=== PATIENT | female | born 2000 | race Caucasian/White ===

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

== ENCOUNTER 2018-01-28 17:11 | Emergency (ER) | payer BC ==
[~2018-01-28] VITALS: Ht 165.1 cm; Wt 53.2 kg
[2018-01-28 17:16] VITALS: TEMP 36.8; Ht 165.1 cm; Wt 53.2 kg
[2018-01-28] MEDS ORDERED: BCPILLS PO (18:02)
[2018-01-28] MEDS ORDERED: BIOT1CAP4 PO (18:02)
[2018-01-28] MEDS ORDERED: MULT-240 PO (18:02)
--- NOTE | 2018-01-28 18:23 | DIAGNOSTIC IMAGING REPORT ---
HEAD WITHOUT CONTRAST (CT) CLINICAL HISTORY: 17 years-old Female with head injury. Acute head injury with headache and dizziness TECHNIQUE: Multiple axial CT images of the head were obtained without contrast. A dose lowering technique was utilized adhering to the principles of ALARA. CT DOSE: 537.48 mGy.cm COMPARISON: None. FINDINGS: No acute intracranial hemorrhage, midline shift, intracranial mass, hydrocephalus, territorial ischemia or abnormal extra-axial collection. The calvarium is intact. Mastoid air cells are clear. Moderate mucosal thickening of the ethmoid air cells. Left kellee bullosa. Soft tissues and orbits are unremarkable. IMPRESSION: No acute intracranial abnormality. The above report was generated using voice recognition software. It may contain grammatical, syntax or spelling errors. Electronically signed by: Josué Hitchcock M.D. 01/28/2018 6:22 PM Dictated Date/Time: 01/28/2018 6:20 PM
[2018-01-28] MEDS ORDERED: ONDANSETRON HOME PACK 4MG OD TAB PO ONE (18:45)
[2018-01-28 19:08] VITALS: BP 132/87; PULSE 88; O2SAT 97
--- NOTE | 2018-01-28 20:42 | EMERGENCY ROOM VISIT NOTE ---
ED Visit Note First contact with patient: 17:45 CHIEF COMPLAINT: Head injury HISTORY OF PRESENT ILLNESS: This 17-year-old female patient presented to the emergency department after receiving a head injury 3 or 4 days ago. The patient states that she fell and struck her head off a shelf. There was no brief loss of consciousness. There has been nausea and vomiting, which has improved the past 1 day. The patient complains of persistent headache. The patient denies neck or extremity injury. The headache has been persistent. The patient has taken nothing for the pain. The patient rates the pain as 7/10 and dull. The patient denies bowel or bladder dysfunction. The patient denies any other injuries. REVIEW OF SYSTEMS: A review of systems was performed with positives and pertinent negatives listed in the history of present illness. All other systems were reviewed and are negative. ALLERGIES: Penicillins MEDICATIONS: No chronic medication PMH: Otherwise healthy SOCIAL HISTORY: Student who lives locally PHYSICAL EXAM: Vital Signs: Reviewed Nurse's notes, vital signs stable. GENERAL : White female, in no acute distress, well-developed, well-nourished. NEURO: The patient is alert, oriented to person place and time, and coherent. Normal mini mental status exam. Negative Romberg and pronator drift. Cerebellar function intact. HEAD: Normocephalic atraumatic EYES: Pupils are equal round and reactive to light and accommodation. EOMs are full and optic discs and fundi are normal. There is no swelling or discoloration of the tissue surrounding the eyes. EARS: External auditory canals clear without blood. NOSE : Patent without tenderness. No septal hematoma. FACE: No facial bone tenderness. NECK: Supple. There is no cervical spine tenderness. The patient does not have tenderness with movement of the neck. HEAD WITHOUT CONTRAST (CT) CLINICAL HISTORY: 17 years-old Female with head injury. Acute head injury with headache and dizziness TECHNIQUE: Multiple axial CT images of the head were obtained without contrast. A dose lowering technique was utilized adhering to the principles of ALARA. CT DOSE: 537.48 mGy.cm COMPARISON: None. FINDINGS: No acute intracranial hemorrhage, midline shift, intracranial mass, hydrocephalus, territorial ischemia or abnormal extra-axial collection. The calvarium is intact. Mastoid air cells are clear. Moderate mucosal thickening of the ethmoid air cells. Left kellee bullosa. Soft tissues and orbits are unremarkable. IMPRESSION: No acute intracranial abnormality. ED COURSE: Physical exam and history were performed. Nursing notes and EMR were reviewed. The patient appears to have suffered a head injury a few days ago. Evidently this occurred while she was in [place] on spring. On examination she appears well. I discussed options of care and we elected for CT scan. CT scan is as above I does not show any acute intracranial abnormality. Overall the patient appears well for discharge home. Clinically I suspect that she has a concussion. I will give her a home pack of Zofran to help with her nausea. She is otherwise use [id number] analgesics. She is to follow with [facility] and was otherwise invited back to the ER with any new, worsening, or concerning symptoms. Current/Historical Medications Scheduled Biotin (Biotin), 2 CAP PO DAILY Control Pills ( Control Pills), 1 TAB PO DAILY Multiple Vitamins W/ Minerals (Womens One Daily), 1 TAB PO DAILY Allergies Coded Allergies: Amoxicillin (Verified Allergy, Intermediate, Rash, 01/28/18) Penicillins (Verified Allergy, Mild, Rash, 01/28/18) Vital Signs Date Time Temp Pulse Resp B/P (MAP) Pulse Ox O2 Delivery O2 Flow Rate FiO2 01/28/18 19:08 88 18 132/87 97 Room Air 01/28/18 17:16 36.8 83 18 122/80 99 Room Air Medications Administered Medications (Trade) Dose Ordered Sig/Matthew Route Start Time Stop Time Status Last Admin Dose Admin Ondansetron HCl (ZOFRAN ODT 4MG Home Pack) 1 homepack UD ONCE PO 01/28/18 18:45 01/28/18 18:46 DC 01/28/18 19:07 1 HOMEPACK Departure Information Impression Primary Impression: Concussion Dispostion Home / Self-Care Condition GOOD Referrals Patricia Pond PA-C (PCP) Forms HOME CARE DOCUMENTATION FORM, IMPORTANT VISIT INFORMATION Patient Instructions My [facility] Additional Instructions You were seen and evaluated today on an emergency basis only. This is not a substitute for, or an effort to provide, complete comprehensive medical care. It is not possible to recognize and treat all injuries or illnesses in a single emergency department visit. For this reason it is recommended that you followup with S with any ongoing or persisting symptoms. Zofran 4 mg ODT: Dissolve 1 tablet every 6 hrs as needed for nausea. For baseline pain relief you may alternate ibuprofen and acetaminophen every 4 hours for pain control. Take 600 mg ibuprofen (Advil) and then 4 hours later take 1000 mg acetaminophen (Tylenol). Do not take more than 3000 mg acetaminophen in a single day. You are welcome to return to the emergency department anytime with new, worsening, or concerning symptoms.
== END 2018-01-28 19:08 | disposition home or self-care (01) ==
LOC: C.EDB 17:12 → C.EDD 19:08
DX: S06.0X9A Concussion with loss of consciousness of unspecified duration, initial encounter (principal); W19.XXXA Unspecified fall, initial encounter; Z79.3 Long term (current) use of hormonal contraceptives; Z88.0 Allergy status to penicillin; Z88.1 Allergy status to other antibiotic agents

== ENCOUNTER → 2018-02-11 | Outpatient (CLI) | payer BC ==
[~2018-02-11] MED LIST: ATV/1 PO; BCPILLS PO; BIOT1CAP4 PO; HYDR25CA PO; MULT-240 PO
[2018-02-11 19:30] LABS: ALBUMIN 3.5 gm/dl (3.4-5.0); ALT/SGPT 24 U/L (12-78); AST/SGOT 17 U/L (15-37); BLOOD UREA NITROGEN 13 mg/dl (7-18); CALCIUM 9.4 mg/dl (8.5-10.1); CARBON DIOXIDE 27 mmol/L (21-32); CREATININE 0.75 mg/dl (0.60-1.20); GLUCOSE 115 mg/dl (70-99); POTASSIUM 3.5 mmol/L (3.5-5.1); SODIUM 139 mmol/L (136-145)
[2018-02-11 19:40] LABS: ALKALINE PHOSPHATASE 53 U/L (45-117); TOTAL PROTEIN 7.8 gm/dl (6.4-8.2)
== END | disposition home or self-care (01) ==
LOC: C.LAB 18:48
PROVIDERS: ATTEND Internal Medicine
DX: F41.9 Anxiety disorder, unspecified (principal)

== ENCOUNTER 2018-02-25 11:27 | Emergency (ER) | payer BC ==
[~2018-02-25] VITALS: Ht 165.1 cm; Wt 52.3 kg
[~2018-02-25 11:27] MED LIST changes: -ATV/1 PO; -HYDR25CA PO
[2018-02-25 11:44] VITALS: TEMP 36.6; Ht 165.1 cm; Wt 52.3 kg
--- NOTE | 2018-02-25 14:03 | EMERGENCY ROOM VISIT NOTE ---
History Report prepared by Tomas: Jassi Livingston Under the Supervision of: Dr. Marcello Saab M.D. First contact with patient: 13:16 Chief Complaint: ANXIETY Stated Complaint: ANXIETY, CHEST TIGHTNESS History of Present Illness The patient is a 17 year old white female with a past medical history of concussion who presents to the Emergency Room with complaints of worsening anxiety that she has been experiencing for the past month. The patient states that she suffered a concussion 1 month ago from a falling episode. Since this accident she has been noticing worsening anxiety. She notes that her anxiety onsets when she "thinks about her heart rate." She can then feel her chest "tighten up" and she develops an unusual feeling in her left arm. The patient has gone to a concussion specialist and has been told that her concussion is resolved. Her anxiety has persisted, even though she denies any unusual stressors at school The patient denies any fevers or chills, but she has had a dry cough. Source of History: patient Onset: One month Position: chest, other (PSYCH) Quality: other (Anxiety, tightness) Timing: worsening Associated Symptoms: + cough, No fevers, No chills Review of Systems See HPI for pertinent positives and negatives. A total of ten systems were reviewed and were otherwise negative. Past Medical & Surgical Hx of Concussion. Family History Anxiety disorder Social History Smoking Status: Never Smoker Alcohol Use: none Drug Use: none Marital Status: single Housing Status: lives with roommate Occupation Status: student Current/Historical Medications Scheduled Control Pills ( Control Pills), 1 TAB PO DAILY Multiple Vitamins W/ Minerals (Womens One Daily), 1 TAB PO DAILY Allergies Coded Allergies: Amoxicillin (Verified Allergy, Intermediate, Rash, 01/28/18) Penicillins (Verified Allergy, Mild, Rash, 01/28/18) Physical Exam Vital Signs Date Time Temp Pulse Resp B/P (MAP) Pulse Ox O2 Delivery O2 Flow Rate FiO2 02/25/18 13:35 68 16 127/76 98 Room Air 02/25/18 11:44 36.6 108 18 131/82 98 Room Air Physical Exam GENERAL: Awake, alert, well-appearing, NAD HENT: Normocephalic, atraumatic. EYES: Normal conjunctiva. Sclera non-icteric. NECK: Supple. No nuchal rigidity. FROM. RESPIRATORY: CTAB, no rhonchi, wheezing, crackles CARDIAC: RRR, no MRG ABDOMEN: Soft, NTND, BS+ MSK: No chest wall TTP, no LE edema NEURO: GCS 15, CN 2-12 intact, moves all 4s on command SKIN: No rash or jaundice noted. Medical Decision & Procedures ECG Per My Interpretation Indication: chest pain Rate (beats per minute): 111 Rhythm: sinus tachycardia Findings: other (incomplete RBBB, normal axis) ED Course 1354: The patient was evaluated in room A8. A complete history and physical exam was performed. 1419: I reevaluated the patient. Discussed results and discharge instructions: She verbalized understanding and agreement. The patient is ready for discharge. Medical Decision The patient is a 17 year old white female with a past medical history of concussion who presents to the Emergency Room with complaints of worsening anxiety that she has been experiencing for the past month. The patient states that she suffered a concussion 1 month ago from a falling episode. Differential diagnosis: Etiologies such as mood disorder, infection, hypoglycemia, electrolyte abnormalities, cardiac sources, intracerebral event, toxicologic, neurologic, as well as others were entertained. Nursing notes reviewed. Ancillary studies and prior records reviewed. Patient was seen and evaluated the bedside. Patient states that she did have a concussion had seen a concussion specialist. The concussion occurred after following approximate 1 month prior. Patient states that since her concussion she has some anxiety. Patient denies any recent stressors with regards to financial, relationship, family issues. Patient states nothing is changed with regard to her schoolwork load. Patient denies any tobacco or drug abuse. Patient is a social drinker. Patient denies any family history of cardiac disease. Patient does not currently have any chest pains. Patient denies any exertional symptoms, infectious symptoms, prior history of DVT or PE. Patient did have an EKG completed which does show sinus tachycardia. Patient has no overt arrhythmia. Incomplete right bundle branch block. Patient was given some reassurance and her tachycardia did resolve. Patient does have follow-up tomorrow. Patient was deemed suitable for outpatient follow-up and treatment at this time. Patient was given strict follow-up, discharge, and return precautions. All questions were answered. Patient was deemed suitable for outpatient follow-up at this time. Patient agreed with the plan of care and was safely discharged home. Medication Reconcilliation Current Medication List: was personally reviewed by me Blood Pressure Screening Patient's blood pressure: Normal blood pressure Impression Primary Impression: Anxiety Scribe Attestation The scribe's documentation has been prepared under my direction and personally reviewed by me in its entirety. I confirm that the note above accurately reflects all work, treatment, procedures, and medical decision making performed by me. Departure Information Dispostion Home / Self-Care Referrals Patricia Pond PA-C (PCP) Patient Instructions Anxiety Body Response, My [facility] Additional Instructions Please return to the emergency department if you have worsening or recurrent symptoms not amenable to at-home treatment. Please call for a follow-up appointment with her primary care physician. Please take your medications as prescribed. If you have other concerns and/or complaints please feel free to also call your primary care physician's office or return the ED for further evaluation, management, and treatment. Keep your follow-up appointment tomorrow. Take your medications as prescribed. You have been examined and treated today on an emergency basis only. This is not a substitute for, or an effort to provide, complete comprehensive medical care. It is impossible to recognize and treat all injuries or illnesses in a single emergency department visit. It is therefore important that you follow up closely with [facility], your PCP, and/or your specialist(s). Call as soon as possible for an appointment. Thank you for your time and consideration. I look forward to speaking with you again soon. Please don't hesitate to call us if you have any questions.
[2018-02-25 14:20] VITALS: BP 121/68; PULSE 65; O2SAT 99
== END 2018-02-25 14:20 | disposition home or self-care (01) ==
LOC: C.EDB 11:28 → C.EDA 14:20
DX: F41.9 Anxiety disorder, unspecified (principal); R07.9 Chest pain, unspecified; Z87.828 Personal history of other (healed) physical injury and trauma; Z79.3 Long term (current) use of hormonal contraceptives; Z88.0 Allergy status to penicillin

== ENCOUNTER 2018-02-27 23:16 | Emergency (ER) | payer BC ==
[~2018-02-27] VITALS: Ht 165.1 cm; Wt 52.0 kg
[2018-02-27 23:30] VITALS: TEMP 36.7; Ht 165.1 cm; Wt 52.0 kg
[2018-02-28] MEDS ORDERED: hydrOXYzine HCL 25 MG TAB PO STA (00:01)
--- NOTE | 2018-02-28 00:01 | EMERGENCY ROOM VISIT NOTE ---
History Report prepared by Tomas: Prince Aranda Under the Supervision of: Dr. Jairo Ac M.D. First contact with patient: 23:39 Chief Complaint: ANXIETY Stated Complaint: ANXIETY, INSOMNIA History of Present Illness The patient is a 17 year old female who presents to the Emergency Room with complaints of persistent general anxiety for four days. The patient notes that she recently suffered a concussion from a head injury while on spring about one month ago. She notes that she was recently cleared of her concussion, though she states that she developed anxiety from hyper-focusing on her heartbeat. She notes that she had an EKG two days ago, which showed normal. The patient was seen in the past for anxiety as well. She notes that she had thyroid testing and blood tests that showed normal. She reports that she has been unable to fall asleep since February 23, 2018. She states that she has been taking Melatonin to fall asleep, though she wakes up multiple times throughout the night. She notes that she went out at that time, though she denies any alcohol or illicit drug use. She was recently prescribed Trazodone, though she still has been unable to fall asleep. She denies any family history of insomnia. She notes that she was told to take three of the Trazodone tonight, which she has taken, though she still feels really tired and unable to sleep. She notes that her father gave her a quarter of a Xanax, though it too was unhelpful. She notes that she fell asleep for 20 minutes, though woke up from a nightmare. She notes that she is becoming more emotional from the loss of sleep. She notes her classes are normal and she is doing well in them. She denies any hallucinations, SI or HI. She notes loss of appetite. She denies any history of eating disorders. She states that she develops a loss of appetite about a week prior to her menstrual cycle and notes that she is currently on her cycle. She has a family history of anxiety, though denies any history of bipolar disorder, schizophrenia, or depression. She denies any syncope episodes. She denies any swelling or rashes. She has not exercised since her head injury. She denies any history of seizures. She reports a headache. Source of History: patient Onset: four days Position: other (general) Quality: other (anxiety) Timing: other (persistent) Associated Symptoms: + headache, No rash Note: She denies any hallucinations, SI, or HI. She notes loss of sleep. She denies any swelling Review of Systems See HPI for pertinent positives & negatives. A total of 10 systems reviewed and were otherwise negative. Past Medical & Surgical Medical Problems: (1) Concussion Surgical Problems: (1) H/O rhinoplasty (2) Hx of tympanostomy tubes Family History Anxiety disorder Social History Smoking Status: Never Smoker Alcohol Use: none Drug Use: none Marital Status: single Housing Status: lives with roommate Occupation Status: student Current/Historical Medications Scheduled Control Pills ( Control Pills), 1 TAB PO DAILY Multiple Vitamins W/ Minerals (Womens One Daily), 1 TAB PO DAILY Scheduled PRN Hydroxyzine Pamoate (Vistaril), 1-2 CAP PO HS PRN for Anxiety/Insomnia Lorazepam (Ativan), 1 MG PO HS PRN for Anxiety/Insomnia Allergies Coded Allergies: Amoxicillin (Verified Allergy, Intermediate, Rash, 02/27/18) Penicillins (Verified Allergy, Mild, Rash, 02/27/18) Physical Exam Vital Signs Date Time Temp Pulse Resp B/P (MAP) Pulse Ox O2 Delivery O2 Flow Rate FiO2 02/28/18 00:25 80 20 106/75 96 Room Air 02/27/18 23:30 36.7 94 16 122/76 100 Room Air Physical Exam GENERAL: Patient is mildly anxious-appearing and in minimal acute distress. EYES: No scleral icterus, unremarkable pupils. ENT: Mucous membranes moist, no nasal congestion. NECK: No masses appreciated, no meningismus, trachea is midline. RESPIRATORY: No dyspnea. Clear to auscultation and equal bilaterally. No wheeze , no rhonchi. CARDIOVASCULAR: Regular rate and rhythm. No murmurs, rubs, gallops appreciated. GASTROINTESTINAL: Abdomen soft, nontender, no peritonitis. Bowel sounds positive. No masses appreciated. BACK: No midline tenderness, no CVA tenderness EXTREMITIES: Normal motion all extremities, no cyanosis, no edema. NEUROLOGIC: Alert and oriented, no acute motor or sensory deficits, no focal weakness, cranial nerves grossly intact. SKIN: No rash, no jaundice, no diaphoresis. PSYCH: Anxious. Denies SI, HI, and hallucinations. Denies significant depression. Medical Decision & Procedures Medications Administered Medications (Trade) Dose Ordered Sig/Matthew Route Start Time Stop Time Status Last Admin Dose Admin Lorazepam (Ativan 1MG Home Pack) 1 homepack UD ONCE PO 02/28/18 00:15 02/28/18 00:16 DC 02/28/18 00:22 1 HOMEPACK Hydroxyzine HCl (Vistaril Tab) 50 mg NOW STAT PO 02/28/18 00:01 02/28/18 00:02 DC 02/28/18 00:22 50 MG Acetaminophen (Tylenol Tab) 1,000 mg NOW STAT PO 02/28/18 00:27 02/28/18 00:28 DC 02/28/18 00:33 1,000 MG ED Course 2344: The patient was evaluated in room A8. A complete history and physical exam was performed. I discussed the results and treatment plan with the patient and her mother. I answered all pertaining questions that they had. They expressed understanding and verbalized agreement. The patient will be discharged home. Medical Decision 17 yr old anxious female arrives for evaluation of insomnia. Seems pretty clear underlying anxiety disorder which seems to have been exacerbated by recent head injury (already with extensive evals for post concussive). She has been following with PCP and psych for anxiety, but over last 4 days minimal sleep. She is anxious, tired and needs to get some sleep. She is not suicidal nor does she meet any inpatient psychiatric criteria. She failed Trazadone trial. Previously tolerated Ativan well thus will have PRN for this but start with PO Vistaril first line for sleep issues. She has psych appointment later today as it is. She is with her mother and is safe for discharge. Mother was under impression patient would be sleeping here but I informed her I couldn't just keep her in the er all evening. Medication Reconcilliation Current Medication List: was personally reviewed by me Blood Pressure Screening Patient's blood pressure: Normal blood pressure Impression Primary Impression: Insomnia Additional Impression: Anxiety Scribe Attestation The scribe's documentation has been prepared under my direction and personally reviewed by me in its entirety. I confirm that the note above accurately reflects all work, treatment, procedures, and medical decision making performed by me. Departure Information Dispostion Home / Self-Care Prescriptions Hydroxyzine Pamoate (VISTARIL) 25 Mg Cap 1-2 CAP PO HS Y for Anxiety/Insomnia for 30 Days, #30 CAP 1 Refill Prov: Jairo Ac M.D. 02/28/18 Lorazepam (ATIVAN) 1 Mg Tab 1 MG PO HS Y for Anxiety/Insomnia, #10 TAB Prov: Jario Ac M.D. 02/28/18 Referrals No Doctor, Assigned (PCP) Forms HOME CARE DOCUMENTATION FORM, IMPORTANT VISIT INFORMATION Patient Instructions ED Insomnia, My [facility] Additional Instructions You have received a benzodiazepine medication prescription. These medications may cause drowsiness and should not be used with other sedative medications. Do not drive, drink alcohol, perform dangerous activities, nor make important decisions after taking these medications. green belt use or inappropriate use may lead to addiction. Problem Qualifiers
[2018-02-28] MEDS ORDERED: HYDR25CA PO (00:04)
[2018-02-28] MEDS ORDERED: ATV/1 PO (00:04)
[2018-02-28] MEDS ORDERED: ATIVAN 1MG HOMEPACK PO ONE (00:15)
[2018-02-28 00:25] VITALS: BP 106/75; PULSE 80; O2SAT 96
[2018-02-28] MEDS ORDERED: ACETAMINOPHEN 500 MG TAB PO STA (00:27)
== END 2018-02-28 00:38 | disposition home or self-care (01) ==
LOC: C.EDB 23:18 → C.EDA 02-28 00:38
DX: G47.00 Insomnia, unspecified (principal); F41.9 Anxiety disorder, unspecified; Z88.0 Allergy status to penicillin; Z88.8 Allergy status to other drugs, medicaments and biological substances

== ENCOUNTER → 2018-03-05 | Outpatient (CLI) | payer BC ==
[~2018-03-05] MED LIST changes: +ATV/1 PO; -BIOT1CAP4 PO; +HYDR25CA PO
== END | disposition home or self-care (01) ==
LOC: C.LABSPEC 18:00
PROVIDERS: ATTEND Physician Assistant
DX: A74.9 Chlamydial infection, unspecified (principal)